=== PATIENT | female | born 1975 | race Caucasian/White ===

== ENCOUNTER → 2016-09-07 | Outpatient (CLI) | payer BC ==
--- NOTE | 2016-09-11 07:06 | MM ---
Reason for exam: screening (asymptomatic). Baseline mammogram. History: Took hormonal contraceptives for 18 years beginning at age 18. Physical Findings: Nurse did not find any significant physical abnormalities on exam. MG Screening Mammo w CAD Bilateral CC and MLO view(s) were taken. There are scattered fibroglandular densities. There is no discrete abnormality. ASSESSMENT: Benign, BI-RAD 2 RECOMMENDATION: Routine screening mammogram of both breasts in 1 year.
== END | disposition home or self-care (01) ==
LOC: RADMAMWWP 12:56
PROVIDERS: ATTEND Obstetrics & Gynecology
DX: Z12.31 Encounter for screening mammogram for malignant neoplasm of breast (principal)

== ENCOUNTER → 2018-05-28 | Outpatient (CLI) | payer BC ==
--- NOTE | 2018-05-28 08:46 | US ---
EXAMINATION TYPE: US abdomen complete DATE OF EXAM: 05/28/2018 COMPARISON: Abdominal ultrasound dated 11/02/2015 and CLINICAL HISTORY: K80.20 Gallstones. hx of gallstones, pain, previous liver lesion, npo EXAM MEASUREMENTS: Liver Length: 15.7 cm Gallbladder Wall: 0.2 cm CBD: 0.4 cm CHD: 0.3 cm Spleen: 10.2 cm Right Kidney: 10.3 x 5.3 x 4.6 cm Left Kidney: 10.4 x 4.9 x 5.4 cm Pancreas: wnl Liver: Along the right hepatic margin there is a isoechoic to the liver parenchyma lesion measuring 4.7 x 4.3 x 5.0 cm and previously measuring 5.0 x 5.6 x 5.1 cm on the exam of 11/02/2015, overall simil ar in measurement given differences in measurement technique and possible obliquity on ultrasound. Th is lesion demonstrates internal vascularity. On MRI dated 04/11/2012 this measures up to 6.5 x 6.0 cm and was compatible with focal nodular hyperplasia at that time. The remainder the hepatic echotextur e is unremarkable with the smaller area of focal nodular hyperplasia seen on the prior MRI not demons trated on today's examination. Gallbladder: limited visualization due to compacted echogenic foci with shadow (wall echo shadow sig n). Evidence for sonographic Unger's sign: neg CBD: wnl CHD: wnl Spleen: wnl Right Kidney: wnl Left Kidney: wnl Upper IVC: wnl Abd Aorta: wnl The intrahepatic portion of the IVC and proximal abdominal aorta are within normal limits. Common bi le duct is unremarkable. The visualized portions of the pancreas are homogenous. The spleen is unre markable. Kidneys are symmetric and free of hydronephrosis. No renal lesions are seen. IMPRESSION: 1. Numerous gallstones impacted within the gallbladder without common bile duct dilation no sonograph ic Unger sign to suggest acute cholecystitis. 2. Stable large hepatic lesion dating back to 2011 compatible with focal nodular hyperplasia prior MR I.
== END ==
LOC: RADUSWWP 07:33
PROVIDERS: ATTEND Internal Medicine Gastroenterology
DX: K80.20 Calculus of gallbladder without cholecystitis without obstruction (principal); K76.89 Other specified diseases of liver
CPT/HCPCS: 76700

== ENCOUNTER → 2018-09-13 | Day surgery (SDC) | payer BC ==
[2018-09-11 11:54] VITALS: BMI 25.7
[~2018-09-13] MED LIST: BUPIVACAIN-EPI 0.5%-1:200,000 30 ML VIAL SQ ONE; DEXAMETHASONE SOD PHOSPHATE 10 MG/ML 1 ML VIAL IV ONE; GLYCOPYRROLATE 0.2 MG/ML 2 ML VIAL ONE; HEPARIN SODIUM,PORCINE 5,000 UNIT/ML 1 ML VIAL SQ ONE; HYDROcodone/APAP 5-325MG 1 EACH TAB PO PRN; HYDROmorphone (PF) 1 MG/ML ONE; HYDROmorphone 0.5 MG/0.5 ML SYRINGE IVP ONE; LACTATED RINGERS 1,000 ML IV ONE; LACTATED RINGERS 1,000 ML IV SCH; LIDOCAINE 1% 20 ML VIAL (10MG/ML) FOR IV START INTRADERMA ONE; LIDOCAINE 1% INJ 10MG/ML (20 ML MDV) ONE; MIDAZOLAM (PF) 2 MG/2 ML VIAL IV PRN; MIDAZOLAM 2 MG/2 ML VIAL ONE; NALOXONE 0.4 MG/ML 1 ML VIAL IV PRN; NEOSTIGMINE 1 MG/ML 10 ML VIAL ONE; ONDANSETRON 4 MG/2 ML VIAL IVP ONE; PROPOFOL 10 MG/ML 20 ML VIAL IV ONE; ROCURONIUM BROMIDE 10 MG/ML 10 ML VIAL IV ONE; SCOPOLAMINE 1.5MG/72HR PATCH TRANSDERM ONE; ceFAZolin IN SWFI 2 GM/20 ML SYRINGE IVP ONE; fentaNYL (PF) 50 MCG/ML 2 ML AMP ONE
--- NOTE | 2018-09-13 07:45 | P.GSHP ---
History of Present Illness H&P Date: 09/13/18 Chief Complaint: Chronic cholecystitis Patient here today for cholecystectomy. Patient has had complaints of intermittent right upper quadrant pain associated with nausea over the last several months. Pain radiates to the back at times. History of previous liver lesion diagnosed as focal nodular hyperplasia. Recent labs normal. Past Medical History Past Medical History: Seizure Disorder Additional Past Medical History / Comment(s): HX OF CLOSED HEAD INJURY & WAS IN A COMA WITH SURGERY. (1984).,LAST SEIZURE (2009), NAUSEA. History of Any Multi-Drug Resistant Organisms: None Reported Past Surgical History: Tubal Ligation Additional Past Surgical History / Comment(s): .EXPLORATORY SURGERY., HX OF CLOSED HEAD INJURY WITH REMOVAL OF PORTION OF SKULL (1984) Past Anesthesia/Blood Transfusion Reactions: No Reported Reaction, Motion Sickness Past Psychological History: No Psychological Hx Reported Smoking Status: Never smoker Past Alcohol Use History: Daily Past Drug Use History: None Reported - Past Family History Mother Family Medical History: No Reported History Medications and Allergies Home Medications Medication Instructions Recorded Confirmed Type Amitriptyline HCl [Elavil] 10 mg PO HS PRN 09/11/18 09/13/18 History levETIRAcetam [Keppra Xr] 750 mg PO BID 09/11/18 09/13/18 History Allergies Allergy/AdvReac Type Severity Reaction Status Date / Time No Known Allergies Allergy Verified 09/13/18 07:03 Surgical - Exam Vital Signs Temp Pulse Resp BP Pulse Ox 97.9 F 66 16 134/84 96 09/13/18 07:14 09/13/18 07:14 09/13/18 07:14 09/13/18 07:14 09/13/18 07:14 Physical exam: General: Well-developed, well-nourished HEENT: Normocephalic, sclerae nonicteric Abdomen: Nontender, nondistended Extremities: No edema Neuro: Alert and oriented Assessment and Plan (1) Chronic cholecystitis Narrative/Plan: Will proceed with laparoscopic cholecystectomy at this time. Risks of bleeding, infection, bile leak, bile duct injury, retained common bile duct stone, trocar injury, conversion to an open procedure, hernia, anesthesia related complications were reviewed. The patient understands and wishes to proceed. Current Visit: Yes Status: Acute Code(s): K81.1 - CHRONIC CHOLECYSTITIS SNOMED Code(s): 79788533
--- NOTE | 2018-09-13 09:02 | P.OP ---
Date of Procedure: 09/13/18 Procedure(s) Performed: PREOPERATIVE DIAGNOSIS: Chronic cholecystitis POSTOPERATIVE DIAGNOSIS: Same, pedunculated liver mass PROCEDURE: Laparoscopic cholecystectomy SURGEON: Gabi EBL: Minimal see anesthesia record ANESTHESIA: Gen. COMPLICATIONS: None OPERATIVE PROCEDURE: The patient was brought and placed on the operating room table in the supine position. The patient was placed under general anesthesia at that time. The abdomen was prepped and draped in the usual sterile fashion. A small vertical infraumbilical incision was made. The fascia was grasped with the Millicent forceps. The fascia was retracted anteriorly. The Veress needle was advanced into the peritoneal cavity. The saline drop test was normal. Insufflation took place up to 15 mmHg. A 5 mm optical trocar was advanced and the peritoneal cavity. 2 additional 5 mm trochars were placed in the right upper quadrant under direct visualization. A 12 mm trocar was advanced into the epigastric incision site. The patient had a somewhat pedunculated lesion of the liver that was present at the junction between the gallbladder and the liver at the apex of the gallbladder. This measured approximately 6 cm in diameter. As previously evaluated per the patient with a diagnosis of focal nodular hyperplasia. No biopsies for plans for excision of this lesion were made at this time. The gallbladder itself did appear chronically inflamed. The gallbladder was retracted superiorly and laterally. The peritoneum overlying the infundibulum was bluntly dissected. The patient's cystic duct was visualized. The junction between the cystic duct common and hepatic duct was identified. The cystic duct was then divided after placement of 3 12 mm clips on the patient's side and one on the specimen side. The cystic artery was identified and clipped as well. A small vessel was seen along the gallbladder fossa and clipped as well. The gallbladder was then removed from the liver bed using electrocautery. The gallbladder was then removed from the epigastric trocar site with an Endo Catch bag. The gallbladder fossa was irrigated with saline. There was no evidence of any bleeding or biliary drainage seen. The fascia at the 12 millimeter site was closed using a Diogenes-Star 0 Vicryl stitch. The trochars were then removed. The skin at all 4 sites was closed using a 4-0 Monocryl stitch. Skin glue was utilized on the incision sites. At the end of this procedure the sponge and needle counts were correct. DISPOSITION: Stable to the recovery room
[2018-09-13 09:17] VITALS: TEMP 97.2
[2018-09-13] MEDS: HYDROmorphone 0.5 MG/0.5 ML SYRINGE IVP PRN ×2 (09:28→09:36)
[2018-09-13 14:23] VITALS: BP 118/78; PULSE 74; RESP 18
== END ==
LOC: OR 06:49
PROVIDERS: ATTEND Surgery
DX: K80.10 Calculus of gallbladder with chronic cholecystitis without obstruction (principal); G40.909 Epilepsy, unspecified, not intractable, without status epilepticus; K76.89 Other specified diseases of liver; Z80.0 Family history of malignant neoplasm of digestive organs; Z79.52 Long term (current) use of systemic steroids; Z79.899 Other long term (current) drug therapy; K21.9 Gastro-esophageal reflux disease without esophagitis
CPT/HCPCS: 47562; 81025; 88304; J2250; J1644; J1100; J2710; J2405; J2001; J3010; J1170 ×2; J2704; J0690

== ENCOUNTER → 2018-10-08 | Outpatient (CLI) | payer BC ==
--- NOTE | 2018-10-08 14:19 | CT ---
EXAMINATION TYPE: CT abdomen w con DATE OF EXAM: 10/08/2018 COMPARISON: MRI liver 04/11/2012, ultrasound 05/28/2018 HISTORY: Liver mass. CT DLP: 379.8 mGycm Automated exposure control for dose reduction was used. TECHNIQUE: Helical acquisition of images was performed from the lung bases through the top of iliac crest to include entire abdomen. CONTRAST: Performed with Oral Contrast and with IV Contrast, patient injected with 100ml mL of Isovue 300. FINDINGS: LUNG BASES: No significant abnormality is appreciated. LIVER/GB: There is mild fatty hepatic infiltration. There is lobulated exophytic mass medial right he patic lobe which measures approximately 4.6 x 4.0 x 4.4 cm. There appears to be central scar. Finding s are stable dating back to 2011 and are compatible with focal nodular hyperplasia. Cholecystectomy c lips are in place. PANCREAS: No significant abnormality is seen. SPLEEN: No significant abnormality is seen. ADRENALS: No significant abnormality is seen. KIDNEYS: No significant abnormality is seen. BOWEL: No significant abnormality is seen. LYMPH NODES: No significant abnormality is seen. OSSEOUS STRUCTURES: No significant abnormality is seen. FREE AIR: No free air is visualized. OTHER: IMPRESSION: 1. Stable hepatic focal nodular hyperplasia.
== END ==
LOC: RADCTMAIN 13:04
PROVIDERS: ATTEND Surgery
DX: K76.89 Other specified diseases of liver (principal)
CPT/HCPCS: 74160; Q9967

== ENCOUNTER → 2019-07-25 | Outpatient (CLI) | payer BC ==
--- NOTE | 2019-07-28 07:37 | XR ---
EXAMINATION TYPE: XR ribs RT w pa chest xray DATE OF EXAM: 07/25/2019 COMPARISON: NONE HISTORY: Right chest pain. Patient describes right mid rib pain under the right breast for one week w ith no known injury. TECHNIQUE: Frontal and oblique views of the right ribs were obtained. Single frontal view of the ches t was also obtained. FINDINGS: There is no acute displaced right rib fracture. No callused healed rib fracture deformity. No suspicious osseous lesion. The lungs are well aerated without focal consolidation, pleural effusio n or pneumothorax. Cardia mediastinal silhouette is within normal limits. IMPRESSION: No acute cardiopulmonary process. No acute or healed right rib fracture deformity nor chanel picious osseous lesion.
== END | disposition home or self-care (01) ==
LOC: RADXRYALE 10:01
PROVIDERS: ATTEND Physician Assistant Medical
DX: R07.89 Other chest pain (principal)

== ENCOUNTER → 2021-11-10 | Outpatient (CLI) | payer BC ==
--- NOTE | 2021-11-10 14:45 | XR ---
EXAMINATION TYPE: XR lumbar spine 2 or 3V DATE OF EXAM: 11/10/2021 Comparison: None Clinical History: 46-year-old female [id number] LBP Findings: Facet arthropathy lower lumbar spine. Vertebral body heights are preserved and alignment is maintaine d. Disc interspaces also preserved. Cholecystectomy clips. 5 lumbar type vertebral bodies. Impression: Facet arthropathy lower lumbar spine. No vertebral compression collapse or malalignment.
== END | disposition home or self-care (01) ==
LOC: RADXRYALE 10:40
PROVIDERS: ATTEND Physician Assistant
DX: M47.816 Spondylosis without myelopathy or radiculopathy, lumbar region (principal)
CPT/HCPCS: 72100

== ENCOUNTER → 2021-11-29 | Outpatient (CLI) | payer BC ==
--- NOTE | 2021-11-29 08:49 | US ---
EXAMINATION TYPE: US duplex aorta DATE OF EXAM: 11/29/2021 COMPARISON: CT abdomen October 08, 2018 CLINICAL HISTORY: I71.00, M54.5. family h/o of AAA - mother and father, back pain EXAM MEASUREMENTS: Abdominal Aorta: Proximal: 1.8 x 1.8cm Mid: 1.7 x 1.6cm Distal: 1.4 x 1.3cm Bifurcation: Rt = 0.8cm Lt = 0.7cm Normal caliber aorta with no obvious anomaly seen. Aorta is successfully visualized through the bifurcation. IMPRESSION: No ultrasound evidence for greater than 3.0 cm AAA.
== END | disposition home or self-care (01) ==
LOC: RADUSWWP 08:05
PROVIDERS: ATTEND Family Medicine
DX: I71.00 Dissection of unspecified site of aorta (principal); M54.50 Low back pain, unspecified; Z82.49 Family history of ischemic heart disease and other diseases of the circulatory system
CPT/HCPCS: 93979

== ENCOUNTER → 2022-04-25 | Outpatient (CLI) | payer BC ==
--- NOTE | 2022-04-26 09:28 | MM ---
Reason for Exam: Screening (asymptomatic). Last mammogram was performed 5 year(s) and 7 month(s) ago. Patient History: Menarche at age 15. First Full-Term at age 26. Hormonal Contraceptives for 18 years from age 18 until age 36. Risk Values: Doreen 5 year model risk: 0.9%. NCI Lifetime model risk: 9.5%. Prior Study Comparison: 09/07/2016 Bilateral Screening Mammogram, [facility]. Tissue Density: The breast tissue is heterogeneously dense. This may lower the sensitivity of mammography. Findings: Analyzed By CAD. A few scattered benign-appearing small round calcifications are more numerous on the current study versus prior study. There is new oval 9 mm obscured mass in the anterior depth upper slightly outer aspect 3 cm distance from nipple that warrants further workup. Overall Assessment: Incomplete: need additional imaging evaluation, BI-RAD 0 Management: Diagnostic Breast Ultrasound of the left breast. Targeted ultrasound evaluation left breast. Electronically signed and approved by: Neil Kumar M.D.
== END | disposition home or self-care (01) ==
LOC: RADMAMWWP 09:26
PROVIDERS: ATTEND Obstetrics & Gynecology
DX: Z12.31 Encounter for screening mammogram for malignant neoplasm of breast (principal)
CPT/HCPCS: 77063; 77067

== ENCOUNTER → 2022-05-01 | Outpatient (CLI) | payer BC ==
--- NOTE | 2022-05-01 13:58 | USB ---
Reason for Exam: Additional evaluation requested from abnormal screening. Patient History: Menarche at age 15. First Full-Term at age 26. Hormonal Contraceptives for 18 years from age 18 until age 36. Risk Values: Doreen 5 year model risk: 0.9%. NCI Lifetime model risk: 9.5%. Technique: Method: Targeted. Prior Study Comparison: 09/07/2016 Bilateral Screening Mammogram, [facility]. 04/25/2022 Bilateral MG 3D screening mammo w/cad, [facility]. Findings: The upper outer quadrant of the left breast, the axilla of the left breast and the retroareolar of the left breast were scanned. A complete US of all four quadrants of the breast and retro-areolar region were reviewed. * Anechoic cyst present within the left breast 12:00 3 cm from nipple measuring up to 8 mm. * Additional anechoic cyst measuring 3 mm 1:00 3 cm from the nipple. Overall Assessment: Benign, BI-RAD 2 Management: Screening Mammogram of both breasts in 1 year. A clinical breast exam by your physician is recommended on an annual basis and results should be correlated with mammographic findings. Electronically signed and approved by: Joe Gagnon DO
== END | disposition home or self-care (01) ==
LOC: RADUSWWP 13:30
PROVIDERS: ATTEND Obstetrics & Gynecology
DX: R92.8 Other abnormal and inconclusive findings on diagnostic imaging of breast (principal)

== ENCOUNTER → 2023-11-05 | Outpatient (CLI) | payer BC ==
--- NOTE | 2023-11-05 11:51 | CA ---
Transthoracic Echo Report Name: Gisele Don Age: 48 Gender: F : 1975 Exam Date: 11/05/2023 08:49 Exam Location: [facility] Ht (in): 63 Wt (lb): 140 Ordering Physician: Jarrod Griffin DO Attending/Referring Phys: Corinna Kilpatrick PAC Environmental Department Manager Ml Almazan RDCS Procedure CPT: Indications: R00.2 palpitations Cardiac Hx: Technical Quality: Good Contrast 1: Total Dose (mL): Contrast 2: Total Dose (mL): MEASUREMENTS (Male / Female) Normal Values 2D ECHO LV Diastolic Diameter PLAX 4.1 cm 4.2 - 5.9 / 3.9 - 5.3 cm LV Systolic Diameter PLAX 2.5 cm IVS Diastolic Thickness 0.7 cm 0.6 - 1.0 / 0.6 - 0.9 cm LVPW Diastolic Thickness 0.8 cm 0.6 - 1.0 / 0.6 - 0.9 cm LV Relative Wall Thickness 0.4 RV Internal Dim ED PLAX 2.7 cm LA Systolic Diameter LX 3.0 cm 3.0 - 4.0 / 2.7 - 3.8 cm LA Volume 37.9 cm??? 18 - 58 / 22 - 52 cm??? LA Volume Index 22.4 cm???/m??? 16 - 28 cm???/m??? M-MODE Aortic Root Diameter MM 2.3 cm AV Cusp Separation MM 1.6 cm DOPPLER AV Peak Velocity 120.0 cm/s AV Peak Gradient 5.8 mmHg MV Area PHT 3.5 cm??? Mitral E Point Velocity 68.6 cm/s Mitral A Point Velocity 77.7 cm/s Mitral E to A Ratio 0.9 MV Deceleration Time 217.2 ms TR Peak Velocity 230.2 cm/s TR Peak Gradient 21.2 mmHg Right Ventricular Systolic Press 26.2 mmHg FINDINGS Left Ventricle Left ventricular ejection fraction is estimated at 55-60 %. Left ventricular cavity size normal. Left ventricular wall thickness normal. Normal left ventricular wall motion. Right Ventricle Normal right ventricular size. Right ventricular systolic pressure within normal limits. Right Atrium Normal right atrial size. Left Atrium Normal left atrial size. Mitral Valve Structurally normal mitral valve. No mitral stenosis. Mild mitral regurgitation. Aortic Valve Trileaflet aortic valve. No aortic valve stenosis or regurgitation. Tricuspid Valve Structurally normal tricuspid valve. Mild tricuspid regurgitation. Pulmonic Valve Structurally normal pulmonic valve. No pulmonic regurgitation. Pericardium No pericardial effusion. Aorta Normal size aortic root and proximal ascending aorta. CONCLUSIONS Normal LV size and systolic function. Mild mitral regurgitation. No pulmonary hypertension. No pericardial effusion Previewed by: Dr. Cleo Jones MD (Electronically Signed) Final Date: 05 November 2023 11:50
== END | disposition home or self-care (01) ==
LOC: RADECHMAIN 08:23
PROVIDERS: ATTEND Family Medicine
DX: I34.0 Nonrheumatic mitral (valve) insufficiency (principal); I10 Essential (primary) hypertension; R00.2 Palpitations; R01.1 Cardiac murmur, unspecified
CPT/HCPCS: 93306

== ENCOUNTER → 2024-07-04 | Outpatient (CLI) | payer BC ==
--- NOTE | 2024-07-07 12:35 | MM ---
Reason for Exam: Screening (asymptomatic). Last mammogram was performed 2 year(s) and 3 month(s) ago. Patient History: Menarche at age 15. First Full-Term at age 26. Hormonal Contraceptives for 18 years from age 18 until age 36. Risk Values: Doreen 5 year model risk: 0.9%. NCI Lifetime model risk: 9.2%. Prior Study Comparison: 09/07/2016 Bilateral Screening Mammogram, [facility]. 04/25/2022 Bilateral MG 3D screening mammo w/cad, [facility]. Tissue Density: There are scattered areas of fibroglandular density. Findings: Analyzed By CAD. Right breast: There is no suspicious group of microcalcifications or new suspicious mass. Benign-appearing calcifications right breast. Left breast: There is no suspicious group of microcalcifications or new suspicious mass. Benign-appearing calcifications left breast. Overall Assessment: Benign, BI-RAD 2 Management: Screening Mammogram of both breasts in [address] [facility] will attempt to contact patient to return for supplemental views and ultrasound if indicated. Patient should continue monthly self-breast exams. A clinical breast exam by your physician is recommended on an annual basis. This exam should not preclude additional follow-up of suspicious palpable abnormalities. Note on Doreen scores and lifetime risk: 1. A Doreen score greater than 3% is considered moderate risk. If this is the case, consider specialist referral to assess eligibility for a risk reducing agent. 2. If overall lifetime risk for the development of breast cancer is 20% or higher, the patient may qualify for future screening with alternating mammogram and breast MRI. [facility], , 07/07/2024 12:33 PM. Electronically signed and approved by: Joe Gagnon DO
== END | disposition home or self-care (01) ==
LOC: RADMAMWWP 12:27
PROVIDERS: ATTEND Family Medicine
DX: Z12.31 Encounter for screening mammogram for malignant neoplasm of breast (principal); R92.323 Mammographic fibroglandular density, bilateral breasts
CPT/HCPCS: 77063; 77067